=== PATIENT | male | born 1965 | race Two or more races ===

== ENCOUNTER 2024-08-15 14:47 | Inpatient (IN) | payer BC, OTHER ==
[~2024-08-15] VITALS: Ht 182.9 cm; Wt 111.0 kg
[2024-08-15] MEDS: SODIUM CHLORIDE 0.9% 1,000 ML IV ONE ×2 (15:00→17:45)
[2024-08-15] MEDS: fentaNYL CITRATE 100 MCG/2 ML VL IV ONE ×2 (15:00→16:45)
[2024-08-15] MEDS: ONDANSETRON HCL 4 MG/2 ML VIAL IV ONE ×2 (15:00→16:45)
--- NOTE | 2024-08-15 15:05 | ED.PDOC ---
General HPI Comments 59 y/o obese M is BIBA for c/o right flank pain, today. Patient was seen and admitted to the ED 2x weeks ago for kidney stone. Since then, patient has been fine until today at 1230 with unprovoked and sudden onset of right flank pain. He reports on pain being constant with associated nausea and vomiting. Patient endorses on pain also feeling similar to previous kidney stones Patient reports being a "hard stick." Vitals on scene: pulse of 97, blood pressure of 170/97, SpO2 of 98%RA, respiratory rate of 22 Vitals upon arrival to ED: pulse of 95, blood pressure of 179/99, SpO2 of 98%RA, respiratory rate of 24 Past medical history: HTN, kidney stones Past surgical history: denies HPI: Poor Historian. REVIEW OF SYSTEMS: CONSTITUTIONAL: Denies acute: fever, diaphoresis, chills, generalized weakness. HEAD: Denies acute: headache, photophobia Eyes: Denies acute: Double vision, vision loss, eye pain, eye discharge. EARS: Denies acute: tinnitus, hearing loss, ear discharge, ear pain, THROAT: Denies acute: sore throat, swelling, difficulty swallowing , pain with swallowing, change in voice. NECK: Denies acute: neck pain, neck swelling, stiff neck. HEART: Denies acute : chest pain, palpitations, LUNGS: Denies acute: SOB, wheezing, cough, hemoptysis ABDOMEN: Denies acute: diarrhea, melena , hematemesis, hematochezia SKIN: Denies acute: rash, redness, lesions, itchiness. EXTREMITIES: Denies acute: calf pain, numbness, tingling, weakness, denies pain in extremity. Denies acute: Low back pain. Neuro: Denies acute: focal neurological deficit, motor or sensory focal neurological deficit, tremors, seizure like activity, confusion, dizziness, change in mental status, loss of bowel or bladder function, cauda equina like symptoms. : Denies acute: dysuria, hematuria, increase in urinary frequency. PSYCH: Denies acute: hallucination, suicidal ideation, homicidal ideation. PHYSICAL EXAM: General: ---moderate to severe-----acute distress, awake and alert. Head: normocephalic, atraumatic. Neck: supple, trachea is midline, no swelling. Throat: Normal phonation. Eyes:, no erythema, no purulent discharge, no proptosis, no icterus. Heart: regular rate, regular rhythm, no significant murmur appreciated. Lungs: no apparent respiratory distress, No wheezing, no rhonchi, no crackles. No stridors Clear to auscultation bilaterally. Abdomen: Right-sided abdominal tender to palpation, non distended, soft, no gua rding, no rebound, + bowel sounds. Neuro: Awake, Alert, oriented to name, self, situation, follows commands GCS=15. Speech is normal. Skin: no petechia, no purpura, no cyanosis, non-pale, not jaundice. Lower extremities: --no - Pitting edema no deformity, no focal swelling, no calf TTP. Makes eye contact. moves all four extremities. Face: no apparent facial droop. Right CVA tenderness to percussion ED COURSE: Chief Complaint: Flank Pain Time Seen by MD: 14:50 Primary Care Provider: unknown Reviewed notes: Nurses Notes, Time Lock Expert Notes, Medications, Allergies Allergies: Coded Allergies: NO KNOWN ALLERGIES (Unverified , 08/15/24) Home Meds Reported Medications Topiramate (Topamax) 25 Mg Tab, 0.04 MG PO, TAB 08/15/24 Chlorthalidone (Chlorthalidone) 25 Mg Tab, 10 MG PO, TAB 08/15/24 Amlodipine Besylate (Amlodipine Besylate) 10 Mg Tab, 1 TAB PO DAILY, #30 TAB 5 Refills 08/15/24 Lisinopril (Lisinopril) 20 Mg Tab, 1 TAB PO DAILY, #30 TAB 5 Refills 08/15/24 Information Source: Patient, Emergency Med Personnel Mode of Arrival: EMS Was a procedure done? Was a procedure done?: No Differential Diagnosis Kidney stone (Female): N/A Kidney stone (Male): Other (Flank Pain;DDX include Nephrolethiasis, obstructive uropathy, kidney cancer, renal infarct, intraabdominal neoplasm, lower lobe pneumonia, retroperitoneal hemorrhage, pancreatitis, aneurysm, dissection, musculoskeletal, rib contusion/trauma, hematoma, PYLONEPHRITIS, muscle strain, spinal disease. ) X-Ray, Labs, Meds, VS Vital Signs Date Time Temp Pulse Resp B/P (MAP) Pulse Ox O2 Delivery O2 Flow Rate FiO2 08/15/24 18:30 99 18 155/84 08/15/24 17:52 83 18 182/111 (134) 97 08/15/24 16:45 182/111 08/15/24 16:07 84 08/15/24 15:00 187/102 08/15/24 14:54 98.0 95 24 179/99 (125) 98 98.0 Lab Test 08/15/24 17:47 08/15/24 15:45 08/15/24 15:21 Range/Units Lactic Acid Level 2.8 *H 3.8 *H 0.4-2.0 mmol/L Urine Color Colorless Yellow Urine Clarity Clear Clear Urine pH 7.5 5.0-9.0 Urine Specific [place] 1.010 1.001-1.035 Urine Protein Trace H Negative Urine Ketones Negative Negative Urine Blood Trace H Negative /uL Urine Nitrite Negative Negative Urine Bilirubin Negative Negative Urine Urobilinogen Normal Negative mg/dL Urine Leukocyte Esterase Negative Negative /uL Urine RBC 12 0 - 3 /hpf Urine Microscopic WBC < 1 0-3 /HPF Urine Squamous Epithelial Cells None seen <5 /hpf Urine Bacteria None seen None Seen /hpf Urine Glucose Normal Normal mg/dL White Blood Count 8.8 4.4-10.8 10^3/uL Red Blood Count 5.66 4.5-5.90 10^6/uL Hemoglobin 16.1 13.5-17.5 g/dL Hematocrit 48.0 41.0-53.0 % Mean Corpuscular Volume 84.7 80.0-100.0 fL Mean Corpuscular Hemoglobin 28.5 28.0-32.0 pg Mean Corpuscular Hemoglobin Concent 33.6 32.0-36.0 g/dL Red Cell Distribution Width 15.1 H 11.8-14.3 % Platelet Count 240 140-450 10^3/uL Mean Platelet Volume 8.3 6.9-10.8 fL Neutrophils (%) (Auto) 80.9 H 37.0-80.0 % Lymphocytes (%) (Auto) 12.9 10.0-50.0 % Monocytes (%) (Auto) 5.3 0.0-12.0 % Eosinophils (%) (Auto) 0.6 0.0-7.0 % Basophils (%) (Auto) 0.3 0.0-2.0 % Neutrophils # (Auto) 7.1 1.6-8.6 10 ^3/uL Lymphocytes # (Auto) 1.1 0.4-5.4 10 ^3/uL Monocytes # (Auto) 0.5 0-1.3 10 ^3/uL Eosinophils # (Auto) 0.1 0-0.8 10 ^3/uL Basophils # (Auto) 0 0-0.2 10 ^3/uL Nucleated Red Blood Cells 0.1 % Sodium Level 140 136-145 mmol/L Potassium Level 2.9 L 3.5-5.1 mmol/L Chloride Level 102 98-107 mmol/L Carbon Dioxide Level 26 20-31 mmol/L Anion Gap 12 5-15 Blood Urea Nitrogen 15 9-23 mg/dL Creatinine 1.60 H 0.700-1.30 mg/dL Glomerular Filtration Rate Calc 49 >90 mL/min BUN/Creatinine Ratio 9.4 L 10.0-20.0 Serum Glucose 118 H 74-106 mg/dL Calcium Level 10.1 8.7-10.4 mg/dL Total Bilirubin 0.4 0.2-1.0 mg/dL Aspartate Amino Transferase (AST) 28 13-40 U/L Alanine Aminotransferase (ALT) 28 7-40 U/L Alkaline Phosphatase 59 46-116 U/L Troponin I High Sensitivity 4 </=54 ng/L Total Protein 8.2 5.7-8.2 g/dL Albumin 4.9 H 3.2-4.8 g/dL Hepatitis B Surface Antigen Pending Hepatitis C Antibody Pending [place] [address] Ph: [phone] DIAGNOSTIC IMAGING Diagnostic Imaging Report : [id number] Signed PATIENT: STACI DELUNA ACCT: [id number] UNIT: [id number] : 1965 LOC: ER ROOM / BED: / AGE / SEX: 59 / M ADM STATUS: REG ER SERVICE [id number] ORDERING PHYSICIAN: TORITO OLEARY DO PROCEDURE(s): ABPL - CT AB PEL WO CON-NO ORAL OR IV REASON: flank pain/abd pain ORDER NUMBER(s): [id number], ACCESSION NUMBER(s): [id number] Procedure: CT CT AB PEL WO CON-NO ORAL OR IV 08/15/2024 03:25 PM Indication: flank pain/abd pain Comparison Study: None Technique: Axial images were obtained and reformatted in coronal and sagittal planes. All CT scans at this medical facility are performed using dose modulation techniques as appropriate to a performed exam including the following: Automated exposure control was utilized; adjustment of the MA and/or KV according to patient size; and use of iterative reconstruction technique. CT Dose: CTDI volume is 25 mGy. Dose-length product is 1394 mGy*cm FINDINGS: Lower Chest: Unremarkable. Hepatobiliary: Hepatic steatosis. Spleen: Unremarkable. Pancreas: Unremarkable. Adrenal Glands: Unremarkable. tract: The kidneys are normal in size bilaterally . Moderate right hydronephrosis and proximal hydroureter noted. There are 2 obstructing calculi in the right proximal ureter measuring 6 mm and 4 mm. The largest stone is closer to the UVJ. Moderate amount of fluid is seen inferior to the right pelvis inferior pole of the right kidney. Moderate fat stranding surrounding the right proximal ureter. There is mild left hydronephrosis. Numerous subcentimeter nonobstructing bilateral renal calculi are seen measuring up to 3 mm. ModerateThe urinary bladder is unremarkable. GI tract: The stomach is grossly normal in appearance. No evidence of small blu l obstruction. The large bowel is unremarkable. The appendix is normal. Lymphatics: Numerous retroperitoneal lymph nodes are seen measuring up to 1.8 x 1 cm in the aortocaval region. Few mildly prominent mesenteric lymph nodes are seen with the largest in the right lower quadrant measuring 1.6 x 0.8 cm. No Prominent Pelvic lymph node. Vasculature: The abdominal aorta is normal in caliber. Pelvic Organs: Prostate is moderately enlarged measuring 6.2 cm in transverse. Bones/soft tissues: Small fat containing umbilical hernia. Degenerative disc disease and posterior facet arthropathy noted at several levels in the lower lumbar spine most prominent at L4-L5 with severe reduction in disc height, discogenic endplate changes, moderate to severe central canal stenosis and severe left neural foramina stenosis. Mild degenerative grade 1 anterolisthesis L2 on L3 noted. Subcentimeter sclerotic focus is seen in the left side of the L5 vertebral body. Other: None. IMPRESSION: 1. Right renal obstructive uropathy due to 2 subcentimeter calculi in the right proximal ureter with evidence of uterine leak. No definite the urinoma at this time. 2. Numerous subcentimeter nonobstructing bilateral renal calculi measuring 2-3 mm. There is mild left hydronephrosis without obstructing calculi. 3. Retroperitoneal right lower quadrant mesenteric lymphadenopathy likely reactive in nature. Recommend attention on follow-up. 4. Hepatic steatosis. ATED BY: LIYAH TREVINO MD DICTATED DATE/TIME: 08/15/24 1622 SIGNED BY: LIYAH TREVINO MD SIGNED DATE/TIME: 08/15/24 162 CC: Time of 1ST Reevaluation: 14:50 Reevaluation 1ST: Unchanged Patient Education/Counseling: Diagnosis, Treatment Family Education/Counseling: No Family Present Departure 1 Departure Time of Disposition: 17:50 Impression: Primary Impression: Urinary tract obstruction by kidney stone Additional Impression: Hydronephrosis with renal and ureteral calculous obstruction Disposition: 09 ADMITTED INPATIENT Admit to: [facility] Condition: Guarded Discharged With: Self Critical Care Note Critical Care Time?: Yes (35 min-critical care time only) I personally scribed for TORITO OLEARY DO ([email or web address]) on 08/15/24 at 15:05. Electronically submitted by Guillermo Schroeder ([email or web address]). TORITO OLEARY DO Aug 15, 2024 15:05
[2024-08-15 15:44] LABS: Basophils # (auto) 0 10 ^3/uL (0-0.2); Basophils % (auto) 0.3 % (0.0-2.0); Eosinophils # (auto) 0.1 10 ^3/uL (0-0.8); Eosinophils % (auto) 0.6 % (0.0-7.0); Hemoglobin 16.1 g/dL (13.5-17.5); Lymphocytes # (auto) 1.1 10 ^3/uL (0.4-5.4); Lymphocytes % (auto) 12.9 % (10.0-50.0); Mean Corpuscular Hemoglobin 28.5 pg (28.0-32.0); Mean Corpuscular Hgb Conc. 33.6 g/dL (32.0-36.0); Mean Corpuscular Volume 84.7 fL (80.0-100.0); Monocytes # (auto) 0.5 10 ^3/uL (0-1.3); Monocytes % (auto) 5.3 % (0.0-12.0); Neutrophils # (auto) 7.1 10 ^3/uL (1.6-8.6); Neutrophils % (auto) 80.9 % (37.0-80.0); Nucleated Red Blood Cells % 0.1 %; Platelet Count (auto) 240 10^3/uL (140-450); Red Blood Cells 5.66 10^6/uL (4.5-5.90); Red Cell Distribution Width 15.1 % (11.8-14.3); White Blood Cell 8.8 10^3/uL (4.4-10.8)
[2024-08-15 15:55] LABS: Urine Bacteria None Seen /hpf (None Seen)
[2024-08-15 16:02] LABS: Alanine Aminotransferase 28 U/L (7-40); Alkaline Phosphatase 59 U/L (46-116); Anion Gap 12 (5-15); Aspartate Aminotransferase 28 U/L (13-40); BUN/Creatinine Ratio 9.4 (10.0-20.0); Bilirubin, Total 0.4 mg/dL (0.2-1.0); Blood Urea Nitrogen 15 mg/dL (9-23); Calcium 10.1 mg/dL (8.7-10.4); Carbon Dioxide 26 mmol/L (20-31); Chloride 102 mmol/L (98-107); Sodium 140 mmol/L (136-145); Total Protein 8.2 g/dL (5.7-8.2)
[2024-08-15 16:03] LABS: Urine Blood TRACE /uL (Negative); Urine Clarity Clear (Clear); Urine Color Colorless (Yellow); Urine Protein, UAD TRACE (Negative); Urine Squamous Epithelial Cell None Seen /hpf (<5); Urine Urobilinogen Normal (Negative); Urine WBC < 1 /HPF (0-3); Urine pH 7.5 (5.0-9.0)
[2024-08-15 16:03] LABS: Albumin 4.9 g/dL (3.2-4.8); Glucose 118 mg/dL (74-106); Potassium 2.9 mmol/L (3.5-5.1)
[2024-08-15 16:10] LABS: Lactic Acid w/Reflex 3.8 mmol/L (0.4-2.0)
[2024-08-15] MEDS: TAMSULOSIN HYDROCHLORIDE 0.4 MG CAP PO ONE (16:15)
--- NOTE | 2024-08-15 16:24 | DVH ---
Procedure: CT CT AB PEL WO CON-NO ORAL OR IV 08/15/2024 03:25 PM Indication: flank pain/abd pain Comparison Study: None Technique: Axial images were obtained and reformatted in coronal and sagittal planes. All CT scans at this medical facility are performed using dose modulation techniques as appropriate to a performed e xam including the following: Automated exposure control was utilized; adjustment of the MA and/or KV according to patient size; and use of iterative reconstruction technique. CT Dose: CTDI volume is 25 mGy. Dose-length product is 1394 mGy*cm FINDINGS: Lower Chest: Unremarkable. Hepatobiliary: Hepatic steatosis. Spleen: Unremarkable. Pancreas: Unremarkable. Adrenal Glands: Unremarkable. tract: The kidneys are normal in size bilaterally . Moderate right hydronephrosis and proximal hy droureter noted. There are 2 obstructing calculi in the right proximal ureter measuring 6 mm and 4 mm . The largest stone is closer to the UVJ. Moderate amount of fluid is seen inferior to the right pelv is inferior pole of the right kidney. Moderate fat stranding surrounding the right proximal ureter. There is mild left hydronephrosis. Numerous subcentimeter nonobstructing bilateral renal calculi are seen measuring up to 3 mm. ModerateThe urinary bladder is unremarkable. GI tract: The stomach is grossly normal in appearance. No evidence of small bowel obstruction. The la rge bowel is unremarkable. The appendix is normal. Lymphatics: Numerous retroperitoneal lymph nodes are seen measuring up to 1.8 x 1 cm in the aortocava l region. Few mildly prominent mesenteric lymph nodes are seen with the largest in the right lower q uadrant measuring 1.6 x 0.8 cm. No Prominent Pelvic lymph node. Vasculature: The abdominal aorta is normal in caliber. Pelvic Organs: Prostate is moderately enlarged measuring 6.2 cm in transverse. Bones/soft tissues: Small fat containing umbilical hernia. Degenerative disc disease and posterior fa cet arthropathy noted at several levels in the lower lumbar spine most prominent at L4-L5 with severe reduction in disc height, discogenic endplate changes, moderate to severe central canal stenosis and severe left neural foramina stenosis. Mild degenerative grade 1 anterolisthesis L2 on L3 noted. Sub centimeter sclerotic focus is seen in the left side of the L5 vertebral body. Other: None. IMPRESSION: 1. Right renal obstructive uropathy due to 2 subcentimeter calculi in the right proximal ureter with evidence of uterine leak. No definite the urinoma at this time. 2. Numerous subcentimeter nonobstructing bilateral renal calculi measuring 2-3 mm. There is mild left hydronephrosis without obstructing calculi. 3. Retroperitoneal right lower quadrant mesenteric lymphadenopathy likely reactive in nature. Recomme nd attention on follow-up. 4. Hepatic steatosis.
[2024-08-15] MEDS: HYDROMORPHONE HCL 1 MG/ML INJ IV ONE (17:45)
--- NOTE | 2024-08-15 18:17 | ECG ---
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
[2024-08-15] MEDS: HYDROmorphone HCL 2 MG/ML VL/or syr IV ONE (18:30)
[2024-08-15] MEDS: SODIUM CHLORIDE 0.9% 1,000 ML IV SCH (19:15)
[2024-08-15] MEDS ORDERED: TEMAZEPAM 15 MG CAP PO PRN (19:15)
[2024-08-15] MEDS ORDERED: MAALOX PLUS or MAALOX 30 ML PO PRN (19:15)
[2024-08-15] MEDS ORDERED: LORazepam 0.5 MG TAB PO PRN (19:15)
--- NOTE | 2024-08-15 19:18 | DVHHP2 ---
History of Present Illness Reason for Visit: flank pain History of Present Illness 59 yo male with a history of kidney stones patient was in the ed 2 weeksbefore for kidney stones and today came back to the ed with complaints of severe abdominal pain with nausea and vomiting and stated worsening pain since his previous admission patient for admission for continued medical management and evaluation Cardiovascular: HTN Review of Systems Constitutional: Yes: Weakness; No: Fever, Chills, Sweats, Malaise, Other Eyes: No: Pain, Vision change, Conjunctivae inflammation, Eyelid inflammation, Other, Redness ENT: No: Ear pain, Ear discharge, Nose pain, Nose discharge, Nose congestion, Mouth pain, Mouth swelling, Throat pain, Throat swelling, Other Respiratory: No: Cough, Dry, Shortness of breath, SOB with excertion, Wheezing, Hemoptysis, Pleuritic Pain, Sputum, Wheezing, Other Cardiovascular: No: Chest Pain, Palpitations, Orthopnea, Paroxysmal Noc. Dyspnea, Edema, Lt Headedness, Other Gastrointestinal: Nausea, Vomiting, Abdominal Pain; No: Diarrhea, Constipation, Melena, Hematochezia, Other Genitourinary: Dysuria; No Frequency, No Incontinence; Hematuria, Retention; No Other Musculoskeletal: No: other, neck pain, shoulder pain, arm pain, back pain, hand pain, leg pain, foot pain Skin: No: Rash, Lesions, Jaundice, Bruising, Other Neurological: No: Weakness, Numbness, Incoordination, Change in speech, Confusion, Seizures, Other Allergies: Coded Allergies: NO KNOWN ALLERGIES (Unverified , 08/15/24) Medications Current Medications Medications Dose Ordered Sig/Charo Route Start Time Stop Time Status Last Admin Dose Admin Sodium Chloride 1,000 ml @ 60 mls/hr [id number] IV 08/15/24 19:15 Lorazepam 0.5 mg Q6HP PRN PO 08/15/24 19:15 Al Hydrox/Mg Hydrox/Simethicone 30 ml Q6HP PRN PO 08/15/24 19:15 Docusate Sodium 100 mg BIDPRN PRN PO 08/15/24 19:15 Acetaminophen 650 mg Q6HP PRN PO 08/15/24 19:15 Temazepam 15 mg QHSP PRN PO 08/15/24 19:15 Hydromorphone HCl 1 mg Q4HP PRN IV 08/15/24 19:15 Ondansetron HCl 4 mg Q4HP PRN IV 08/15/24 19:15 Ceftriaxone Sodium 50 ml @ 100 mls/hr DAILY IV 08/15/24 19:15 Finasteride 5 mg DAILY PO 08/16/24 10:00 Tamsulosin HCl 0.8 mg QPM PO 08/16/24 18:00 Exam Vital Signs Vital Signs Date Time Temp Pulse Resp B/P (MAP) Pulse Ox O2 Delivery O2 Flow Rate FiO2 08/15/24 18:30 99 18 155/84 08/15/24 17:52 97 08/15/24 14:54 98.0 98.0 Exam General: ---moderate to severe-----acute distress, awake and alert. Head: normocephalic, atraumatic. Neck: supple, trachea is midline, no swelling. Throat: Normal phonation. Eyes:, no erythema, no purulent discharge, no proptosis, no icterus. Heart: regular rate, regular rhythm, no significant murmur appreciated. Lungs: no apparent respiratory distress, No wheezing, no rhonchi, no crackles. No stridors Clear to auscultation bilaterally. Abdomen: Right-sided abdominal tender to palpation, non distended, soft, no guarding, no rebound, + bowel sounds. Neuro: Awake, Alert, oriented to name, self, situation, follows commands GCS=15. Speech is normal. Skin: no petechia, no purpura, no cyanosis, non-pale, not jaundice. Lower extremities: --no - Pitting edema no deformity, no focal swelling, no calf TTP. Face: no apparent facial droop. Right CVA tenderness to percussion Labs/Xrays Labs Test 08/15/24 17:47 08/15/24 15:45 08/15/24 15:21 Range/Units Lactic Acid Level 2.8 *H 0.4-2.0 mmol/L Urine Color Colorless Yellow Urine Clarity Clear Clear Urine pH 7.5 5.0-9.0 Urine Specific [place] 1.010 1.001-1.035 Urine Protein Trace H Negative Urine Ketones Negative Negative Urine Blood Trace H Negative /uL Urine Nitrite Negative Negative Urine Bilirubin Negative Negative Urine Urobilinogen Normal Negative mg/dL Urine Leukocyte Esterase Negative Negative /uL Urine RBC 12 0 - 3 /hpf Urine Microscopic WBC < 1 0-3 /HPF Urine Squamous Epithelial Cells None seen <5 /hpf Urine Bacteria None seen None Seen /hpf Urine Glucose Normal Normal mg/dL White Blood Count 8.8 4.4-10.8 10^3/uL Red Blood Count 5.66 4.5-5.90 10^6/uL Hemoglobin 16.1 13.5-17.5 g/dL Hematocrit 48.0 41.0-53.0 % Mean Corpuscular Volume 84.7 80.0-100.0 fL Mean Corpuscular Hemoglobin 28.5 28.0-32.0 pg Mean Corpuscular Hemoglobin Concent 33.6 32.0-36.0 g/dL Red Cell Distribution Width 15.1 H 11.8-14.3 % Platelet Count 240 140-450 10^3/uL Mean Platelet Volume 8.3 6.9-10.8 fL Neutrophils (%) (Auto) 80.9 H 37.0-80.0 % Lymphocytes (%) (Auto) 12.9 10.0-50.0 % Monocytes (%) (Auto) 5.3 0.0-12.0 % Eosinophils (%) (Auto) 0.6 0.0-7.0 % Basophils (%) (Auto) 0.3 0.0-2.0 % Neutrophils # (Auto) 7.1 1.6-8.6 10 ^3/uL Lymphocytes # (Auto) 1.1 0.4-5.4 10 ^3/uL Monocytes # (Auto) 0.5 0-1.3 10 ^3/uL Eosinophils # (Auto) 0.1 0-0.8 10 ^3/uL Basophils # (Auto) 0 0-0.2 10 ^3/uL Nucleated Red Blood Cells 0.1 % Sodium Level 140 136-145 mmol/L Potassium Level 2.9 L 3.5-5.1 mmol/L Chloride Level 102 98-107 mmol/L Carbon Dioxide Level 26 20-31 mmol/L Anion Gap 12 5-15 Blood Urea Nitrogen 15 9-23 mg/dL Creatinine 1.60 H 0.700-1.30 mg/dL Glomerular Filtration Rate Calc 49 >90 mL/min BUN/Creatinine Ratio 9.4 L 10.0-20.0 Serum Glucose 118 H 74-106 mg/dL Calcium Level 10.1 8.7-10.4 mg/dL Total Bilirubin 0.4 0.2-1.0 mg/dL Aspartate Amino Transferase (AST) 28 13-40 U/L Alanine Aminotransferase (ALT) 28 7-40 U/L Alkaline Phosphatase 59 46-116 U/L Troponin I High Sensitivity 4 </=54 ng/L Total Protein 8.2 5.7-8.2 g/dL Albumin 4.9 H 3.2-4.8 g/dL Assessment/Plan Assessment/Plan Obstructive uropathy right ureter stone with hydronephrosis Bilateral stones present with bilateral hydronephrosis Right stone as obstructive Left stone is nonobstructive CT scan evaluated with stones noted Urology evaluation Prostatic Hypertrophy IV Hydration IV abx acute pain management Plan discussed with: Patient My Orders Orders - TARA OAKLEY MD Procedure Category Date Status Time Admit ADMIT 08/15/24 Transmitted 19:03 Code Status CODE 08/15/24 Transmitted 19:03 Vital Signs CINDI 08/15/24 In Process 19:03 Review Orders With CINDI 08/15/24 In Process Adm. 19:03 Consistent DIET 08/16/24 Transmitted Carb(Ccho)Diabetes Breakfast Sodium Chloride 0.9% PHA 08/15/24 In Process 19:15 Lorazepam Tablet PHA 08/15/24 In Process (Ativan Tablet) 19:15 Alum & Mag PHA 08/15/24 In Process Hydrox-Simethicone 19:15 Docusate Sodium PHA 08/15/24 In Process Capsule (Colace 19:15 Acetaminophen Tablet PHA 08/15/24 In Process (Tylenol Tablet) 19:15 Temazepam (Restoril) PHA 08/15/24 In Process 19:15 Notify Md Of Changes CINDI 08/15/24 In Process From Base 19:03 Advance Directive CINDI 08/15/24 In Process 19:03 Patient Condition ORDERS 08/15/24 Transmitted 19:03 Allergies CINDI 08/15/24 In Process 19:03 Hydromorphone PHA 08/15/24 In Process Injection (Dilaudid 19:15 Ondansetron Hcl PHA 08/15/24 In Process (Zofran) 19:15 Notify Md Of Changes CINDI 08/15/24 In Process From Base 19:03 Oxygen By Nasal RT 08/15/24 Transmitted Cannula 19:03 Ceftriaxone 1gm/50ml PHA 08/15/24 In Process D5w (Rocephin) 19:15 * Urology Consult CONS 08/15/24 Transmitted 19:03 Finasteride Tablet PHA 08/16/24 In Process (Proscar Tablet) 10:00 Tamsulosin PHA 08/16/24 In Process Hydrochloride (Flomax) 18:00 Date of Service: Aug 15, 2024 Billing Provider: TARA OAKLEY MD Common Visit Codes: [id number] INP/OBS CARE (HIGH) TARA OAKLEY MD Aug 15, 2024 19:18
[2024-08-15] MEDS: cefTRIAXone 1GM/50ML D5W 50 ML IV SCH (19:32)
[2024-08-15 21:17] VITALS: PULSE 98; O2SAT 97
[2024-08-15] MEDS: HYDROmorphone HCL 2 MG/ML VL/or syr IV PRN (21:19)
[2024-08-15] MEDS ORDERED: CHLO25TA2 PO (21:50)
[2024-08-15] MEDS ORDERED: LISI20TA56 PO (21:50)
[2024-08-15] MEDS ORDERED: AMLO1TAB23 PO (21:50)
[2024-08-15] MEDS ORDERED: TOPI25TA43 PO (21:50)
[2024-08-15 22:30] VITALS: BP 156/105; PULSE 95; RESP 18; TEMP 98.2; O2SAT 98
[2024-08-15] MEDS: SODIUM CHL 0.9% 100 ML IV SCH (23:00)
[2024-08-15] MEDS: ACETAMINOPHEN 325 MG TAB PO PRN (23:31)
[2024-08-15] MEDS: POTASSIUM CHL 20MEQ/50ML 50 ML IV SCH (23:56)
[2024-08-16] VITALS (8 sets, daily range): BP systolic 117–166; BP diastolic 74–111; PULSE 88–99; RESP 17–20; TEMP 97.4–98.7; O2SAT 96–100
[2024-08-16] MEDS: ONDANSETRON HCL 4 MG/2 ML VIAL IV PRN (05:49)
[2024-08-16] MEDS: FINASTERIDE 5 MG TAB PO SCH (09:50)
[2024-08-16] MEDS ORDERED: SODIUM CHL 0.9% 100 ML IV SCH (10:00)
[2024-08-16] MEDS: POTASSIUM CHL 20MEQ/50ML 50 ML IV SCH (10:55)
[2024-08-16] MEDS: amLODIPine BESYLATE 5 MG TAB PO ONE (11:15)
--- NOTE | 2024-08-16 12:41 | DVHPN2 ---
Subjective The patient is seen and examined at bedside. Complain of severe pain in the right flank area. The pain medication did not help him Reviewed: Care Plan, H&P, Labs, Medications, Previous Orders, Radiology Changes from previous H/P or p: No Changes Eyes: No Pain, No Vision change, No Conjunctivae inflammation, No Eyelid inflammation, No Other, No Redness ENT: No Ear pain, No Ear discharge, No Nose pain, No Nose discharge, No Nose congestion, No Mouth pain, No Mouth swelling, No Throat pain, No Throat swelling, No Other Cardiovascular: No Chest Pain, No Palpitations, No Orthopnea, No Paroxysmal Noc. Dyspnea, No Edema, No Lt Headedness, No Other Respiratory: No Cough, No Dry, No Shortness of breath, No SOB with excertion, No Wheezing, No Hemoptysis, No Pleuritic Pain, No Sputum, No Other Gastrointestinal: Nausea, Vomiting, Abdominal Pain; No Diarrhea, No Constipation, No Melena, No Hematochezia, No Other Genitourinary: Dysuria; No Frequency, No Incontinence; Hematuria, Retention; No Other Musculoskeletal: No other, No neck pain, No shoulder pain, No arm pain, No back pain, No hand pain, No leg pain, No foot pain Skin: No Rash, No Lesions, No Jaundice, No Bruising, No Other Objective Vitals Vital Signs Date Time Temp Pulse Resp B/P (MAP) Pulse Ox O2 Delivery O2 Flow Rate FiO2 08/16/24 11:15 150/95 08/16/24 09:51 94 20 08/16/24 09:00 98.7 100 98.7 08/16/24 08:00 Nasal Cannula* 2 28 Intake/Output Intake and Output 08/16/24 07:00 Intake Total 120 ml Output Total 1845 ml Balance -1725 ml Intake Oral 120 ml Output Urine Total 1845 ml General Appearance: Alert, Oriented X3, moderate distress HEENT: Atraumatic, PERRLA, EOMI, Mucous membr. moist/pink Neck: Supple Lungs: Clear to auscultation, Normal air movement Cardiovascular: Regular rate, Normal S1, Normal S2, No murmurs, Gallops, Rubs Abdomen: Normal bowel sounds, Soft, No tenderness Neuro: Strength at 5/5 X4 ext Psych/Mental Status: Mental status NL Medications Current Medications Medications Dose Ordered Sig/Charo Route Start Time Stop Time Status Last Admin Dose Admin Sodium Chloride 1,000 ml @ 60 mls/hr [id number] IV 08/15/24 19:15 08/15/24 19:15 60 MLS/HR Lorazepam 0.5 mg Q6HP PRN PO 08/15/24 19:15 Al Hydrox/Mg Hydrox/Simethicone 30 ml Q6HP PRN PO 08/15/24 19:15 Docusate Sodium 100 mg BIDPRN PRN PO 08/15/24 19:15 Acetaminophen 650 mg Q6HP PRN PO 08/15/24 19:15 08/16/24 05:41 650 MG Temazepam 15 mg QHSP PRN PO 08/15/24 19:15 Hydromorphone HCl 1 mg Q4HP PRN IV 08/15/24 19:15 08/16/24 09:51 1 MG Ondansetron HCl 4 mg Q4HP PRN IV 08/15/24 19:15 08/16/24 05:49 4 MG Ceftriaxone Sodium 50 ml @ 100 mls/hr DAILY IV 08/15/24 19:15 08/15/24 19:32 100 MLS/HR Finasteride 5 mg DAILY PO 08/16/24 10:00 08/16/24 09:50 5 MG Tamsulosin HCl 0.8 mg QPM PO 08/16/24 18:00 Amlodipine Besylate 10 mg DAILY PO 08/17/24 10:00 Lisinopril 20 mg DAILY PO 08/17/24 10:00 Laboratory Results Laboratory Tests 08/15/24 15:21 Chemistry Test 08/15/24 15:21 Albumin 4.9 g/dL (3.2-4.8) H Calcium Level 10.1 mg/dL (8.7-10.4) Total Protein 8.2 g/dL (5.7-8.2) LFT Test 08/15/24 15:21 Alanine Aminotransferase (ALT) 28 U/L (7-40) Alkaline Phosphatase 59 U/L (46-116) Aspartate Amino Transferase (AST) 28 U/L (13-40) Total Bilirubin 0.4 mg/dL (0.2-1.0) Urinalysis Test 08/15/24 15:45 Urine Color Colorless (Yellow) Urine Clarity Clear (Clear) Urine pH 7.5 (5.0-9.0) Urine Specific [place] 1.010 (1.001-1.035) Urine Protein Trace (Negative) H Urine Ketones Negative (Negative) Urine Blood Trace /uL (Negative) H Urine Nitrite Negative (Negative) Urine Bilirubin Negative (Negative) Urine Urobilinogen Normal mg/dL (Negative) Urine Leukocyte Esterase Negative /uL (Negative) Urine RBC 12 /hpf (0 - 3) Urine Microscopic WBC < 1 /HPF (0-3) Urine Squamous Epithelial Cells None seen /hpf (<5) Urine Bacteria None seen /hpf (None Seen) Urine Glucose Normal mg/dL (Normal) Labs and/or images reviewed: Labs reviewed by me Assessment/Plan Assessment/Plan Obstructive uropathy right ureter stone with hydronephrosis Bilateral stones present with bilateral hydronephrosis Right stone as obstructive Left stone is nonobstructive Control pain syndrome Continuing current management. Continuing with IV antibiotic. Continuing with IV fluid Increase Dilaudid to 2 mg IV q.3 hours as needed for severe pain Urology input appreciated. Waiting for lithotripsy [facility] on Sunday This medical document was created using an electronic medical record system with [employer] direct computerized dictation system. Although this document has been carefully reviewed, there may still be some phonetic and typographical errors. These areas are purely typographical due to imperfections of the software programs, and do not reflect any compromise in the patient's medical care. Plan discussed with: Patient My Orders Orders - IGLESIA HAILE MD Procedure Category Date Status Time Amlodipine Tablet PHA 08/17/24 In Process (Norvasc Tablet) 10:00 Lisinopril Tablet PHA 08/17/24 In Process (Zestril Tablet) 10:00 Date of Service: Aug 16, 2024 Billing Provider: IGLESIA HAILE MD Common Visit Codes: [id number] INP/OBS CARE(HIGH) IGLESIA HAILE MD Aug 16, 2024 12:41
--- NOTE | 2024-08-16 12:47 | DVHINCON2 ---
Date of service: Aug 16, 2024 Referring Physician Hospitalist Reason for Consultation Obstructive uropathy History of Present Illness History Source: Patient, RN Notes, MD Notes Exam Limitations: No limitations HPI 59 yo male with a history of kidney stones patient was in the ed 2 weeksbefore for kidney stones and today came back to the ed with complaints of severe abdominal pain with nausea and vomiting and stated worsening pain since his previous admission patient for admission for continued medical management and evaluation. pt was sleeping during rounds. Home Meds Reported Medications Topiramate (Topamax) 25 Mg Tab, 0.04 MG PO, TAB 08/15/24 Chlorthalidone (Chlorthalidone) 25 Mg Tab, 10 MG PO, TAB 08/15/24 Amlodipine Besylate (Amlodipine Besylate) 10 Mg Tab, 1 TAB PO DAILY, #30 TAB 5 Refills 08/15/24 Lisinopril (Lisinopril) 20 Mg Tab, 1 TAB PO DAILY, #30 TAB 5 Refills 08/15/24 Past Medical History Patient Family History: Hypertension G8 MOTHER G8 FATHER Review of Systems Constitutional: No symptom reported Ears, Nose, & Throat: No symptom reported Eyes: No symptom reported Pulmonary/Respiratory: No symptom reported Cardiovascular: No symptom reported Gastrointestinal: No symptom reported Genitourinary: No symptom reported Musculoskeletal: No symptom reported Skin: No symptom reported Psychiatric: No symptom reported Endocrine: No symptom reported Hemotologic/Lymphatic: No symptom reported H&P Exam Vital Signs Vital Signs Date Time Temp Pulse Resp B/P (MAP) Pulse Ox O2 Delivery O2 Flow Rate FiO2 08/16/24 11:15 150/95 08/16/24 09:51 94 20 08/16/24 09:00 98.7 100 98.7 08/16/24 08:00 Nasal Cannula* 2 28 General Appeara: Well developed, Well nourished, Normal Appearance, Obese Labs/Xrays [address] [address] Ph: [phone] DIAGNOSTIC IMAGING Diagnostic Imaging Report : [id number] Signed PATIENT: STACI DELUNA ACCT: [id number] UNIT: [id number] : 1965 LOC: ER ROOM / BED: / AGE / SEX: 59 / M ADM STATUS: REG ER SERVICE 3630 ORDERING PHYSICIAN: TORITO OLEARY DO PROCEDURE(s): ABPL - CT AB PEL WO CON-NO ORAL OR IV REASON: flank pain/abd pain ORDER NUMBER(s): [id number], ACCESSION NUMBER(s): [id number] Procedure: CT CT AB PEL WO CON-NO ORAL OR IV 08/15/2024 03:25 PM Indication: flank pain/abd pain Comparison Study: None Technique: Axial images were obtained and reformatted in coronal and sagittal planes. All CT scans at this medical facility are performed using dose modulation techniques as appropriate to a performed exam including the following: Automated exposure control was utilized; adjustment of the MA and/or KV according to patient size; and use of iterative reconstruction technique. CT Dose: CTDI volume is 25 mGy. Dose-length product is 1394 mGy*cm FINDINGS: Lower Chest: Unremarkable. Hepatobiliary: Hepatic steatosis. Spleen: Unremarkable. Pancreas: Unremarkable. Adrenal Glands: Unremarkable. tract: The kidneys are normal in size bilaterally . Moderate right hydronephrosis and proximal hydroureter noted. There are 2 obstructing calculi in the right proximal ureter measuring 6 mm and 4 mm. The largest stone is closer to the UVJ. Moderate amount of fluid is seen inferior to the right pelvis inferior pole of the right kidney. Moderate fat stranding surrounding the right proximal ureter. There is mild left hydronephrosis. Numerous subcentimeter nonobstructing bilateral renal calculi are seen measuring up to 3 mm. ModerateThe urinary bladder is unremarkable. GI tract: The stomach is grossly normal in appearance. No evidence of small bowel obstruction. The large bowel is unremarkable. The appendix is normal. Lymphatics: Numerous retroperitoneal lymph nodes are seen measuring up to 1.8 x 1 cm in the aortocaval region. Few mildly prominent mesenteric lymph nodes are seen with the largest in the right lower quadrant measuring 1.6 x 0.8 cm. No Prominent Pelvic lymph node. Vasculature: The abdominal aorta is normal in caliber. Pelvic Organs: Prostate is moderately enlarged measuring 6.2 cm in transverse. Bones/soft tissues: Small fat containing umbilical hernia. Degenerative disc disease and posterior facet arthropathy noted at several levels in the lower lumbar spine most prominent at L4-L5 with severe reduction in disc height, discogenic endplate changes, moderate to severe central canal stenosis and severe left neural foramina stenosis. Mild degenerative grade 1 anterolisthesis L2 on L3 noted. Subcentimeter sclerotic focus is seen in the left side of the L5 vertebral body. Other: None. IMPRESSION: 1. Right renal obstructive uropathy due to 2 subcentimeter calculi in the right proximal ureter with evidence of uterine leak. No definite the urinoma at this time. 2. Numerous subcentimeter nonobstructing bilateral renal calculi measuring 2-3 mm. There is mild left hydronephrosis without obstructing calculi. 3. Retroperitoneal right lower quadrant mesenteric lymphadenopathy likely reactive in nature. Recommend attention on follow-up. 4. Hepatic steatosis. ATED BY: LIYAH TREVINO MD DICTATED DATE/TIME: 08/15/241621 SIGNED BY: LIYAH TREVINO MD SIGNED DATE/TIME: 08/15/241621 CC: Labs Test 08/15/24 17:47 08/15/24 15:45 08/15/24 15:21 Range/Units Lactic Acid Level 2.8 *H 0.4-2.0 mmol/L Urine Color Colorless Yellow Urine Clarity Clear Clear Urine pH 7.5 5.0-9.0 Urine Specific [place] 1.010 1.001-1.035 Urine Protein Trace H Negative Urine Ketones Negative Negative Urine Blood Trace H Negative /uL Urine Nitrite Negative Negative Urine Bilirubin Negative Negative Urine Urobilinogen Normal Negative mg/dL Urine Leukocyte Esterase Negative Negative /uL Urine RBC 12 0 - 3 /hpf Urine Microscopic WBC < 1 0-3 /HPF Urine Squamous Epithelial Cells None seen <5 /hpf Urine Bacteria None seen None Seen /hpf Urine Glucose Normal Normal mg/dL White Blood Count 8.8 4.4-10.8 10^3/uL Red Blood Count 5.66 4.5-5.90 10^6/uL Hemoglobin 16.1 13.5-17.5 g/dL Hematocrit 48.0 41.0-53.0 % Mean Corpuscular Volume 84.7 80.0-100.0 fL Mean Corpuscular Hemoglobin 28.5 28.0-32.0 pg Mean Corpuscular Hemoglobin Concent 33.6 32.0-36.0 g/dL Red Cell Distribution Width 15.1 H 11.8-14.3 % Platelet Count 240 140-450 10^3/uL Mean Platelet Volume 8.3 6.9-10.8 fL Neutrophils (%) (Auto) 80.9 H 37.0-80.0 % Lymphocytes (%) (Auto) 12.9 10.0-50.0 % Monocytes (%) (Auto) 5.3 0.0-12.0 % Eosinophils (%) (Auto) 0.6 0.0-7.0 % Basophils (%) (Auto) 0.3 0.0-2.0 % Neutrophils # (Auto) 7.1 1.6-8.6 10 ^3/uL Lymphocytes # (Auto) 1.1 0.4-5.4 10 ^3/uL Monocytes # (Auto) 0.5 0-1.3 10 ^3/uL Eosinophils # (Auto) 0.1 0-0.8 10 ^3/uL Basophils # (Auto) 0 0-0.2 10 ^3/uL Nucleated Red Blood Cells 0.1 % Sodium Level 140 136-145 mmol/L Potassium Level 2.9 L 3.5-5.1 mmol/L Chloride Level 102 98-107 mmol/L Carbon Dioxide Level 26 20-31 mmol/L Anion Gap 12 5-15 Blood Urea Nitrogen 15 9-23 mg/dL Creatinine 1.60 H 0.700-1.30 mg/dL Glomerular Filtration Rate Calc 49 >90 mL/min BUN/Creatinine Ratio 9.4 L 10.0-20.0 Serum Glucose 118 H 74-106 mg/dL Calcium Level 10.1 8.7-10.4 mg/dL Total Bilirubin 0.4 0.2-1.0 mg/dL Aspartate Amino Transferase (AST) 28 13-40 U/L Alanine Aminotransferase (ALT) 28 7-40 U/L Alkaline Phosphatase 59 46-116 U/L Troponin I High Sensitivity 4 </=54 ng/L Total Protein 8.2 5.7-8.2 g/dL Albumin 4.9 H 3.2-4.8 g/dL Assessment/Plan Problem List: (1) Hydronephrosis with renal and ureteral calculous obstruction (2) Urinary tract obstruction by kidney stone Plan right eswl TBA 08/19/24 Plan discussed with: Patient, Other BASIA ALEXANDER NP Aug 16, 2024 12:47
[2024-08-16] MEDS: HYDROmorphone HCL 2 MG/ML VL/or syr IV PRN ×2 (14:56→18:21)
[2024-08-16] MEDS: ALBUTEROL SULF 2.5 MG/0.5ML(0.5%) NEB SOLN ONE (17:47)
[2024-08-16] MEDS: TAMSULOSIN HYDROCHLORIDE 0.4 MG CAP PO SCH (18:13)
[2024-08-16 19:02] LABS: INR 1.09 (0.9-1.15); Prothrombin Time 11.5 sec (9.3-11.8)
[2024-08-17] VITALS (9 sets, daily range): BP systolic 121–165; BP diastolic 82–103; PULSE 73–106; RESP 17–20; TEMP 97.5–98.8; O2SAT 94–99
[2024-08-17] MEDS: amLODIPine BESYLATE 5 MG TAB PO SCH (09:16)
[2024-08-17] MEDS: LISINOPRIL 20 MG TAB PO SCH (09:17)
[2024-08-17] MEDS: KETOROLAC TROMETH 30 MG/ML 1ML VIAL IV PRN (11:22)
--- NOTE | 2024-08-17 12:38 | DVHPN2 ---
Subjective The patient is seen and examined at bedside. Complain of severe pain in the right flank area. The pain medication did not help him Reviewed: Care Plan, H&P, Labs, Medications, Previous Orders, Radiology Changes from previous H/P or p: No Changes Eyes: No Pain, No Vision change, No Conjunctivae inflammation, No Eyelid inflammation, No Other, No Redness ENT: No Ear pain, No Ear discharge, No Nose pain, No Nose discharge, No Nose congestion, No Mouth pain, No Mouth swelling, No Throat pain, No Throat swelling, No Other Cardiovascular: No Chest Pain, No Palpitations, No Orthopnea, No Paroxysmal Noc. Dyspnea, No Edema, No Lt Headedness, No Other Respiratory: No Cough, No Dry, No Shortness of breath, No SOB with excertion, No Wheezing, No Hemoptysis, No Pleuritic Pain, No Sputum, No Other Gastrointestinal: Nausea, Vomiting, Abdominal Pain; No Diarrhea, No Constipation, No Melena, No Hematochezia, No Other Genitourinary: Dysuria; No Frequency, No Incontinence; Hematuria, Retention; No Other Musculoskeletal: No other, No neck pain, No shoulder pain, No arm pain, No back pain, No hand pain, No leg pain, No foot pain Skin: No Rash, No Lesions, No Jaundice, No Bruising, No Other Objective Vitals Vital Signs Date Time Temp Pulse Resp B/P (MAP) Pulse Ox O2 Delivery O2 Flow Rate FiO2 08/17/24 09:17 131/96 08/17/24 09:16 93 19 08/17/24 08:47 98.4 95 98.4 08/17/24 08:00 Nasal Cannula* 2 28 Intake/Output Intake and Output 08/17/24 07:00 Intake Total 1505 ml Output Total 1850 ml Balance -345 ml Intake Oral 1405 ml IV Total 100 ml Output Urine Total 1850 ml General Appearance: Alert, Oriented X3, moderate distress HEENT: Atraumatic, PERRLA, EOMI, Mucous membr. moist/pink Neck: Supple Lungs: Clear to auscultation, Normal air movement Cardiovascular: Regular rate, Normal S1, Normal S2, No murmurs, Gallops, Rubs Abdomen: Normal bowel sounds, Soft, No tenderness Neuro: Strength at 5/5 X4 ext Psych/Mental Status: Mental status NL Medications Current Medications Medications Dose Ordered Sig/Charo Route Start Time Stop Time Status Last Admin Dose Admin Sodium Chloride 1,000 ml @ 60 mls/hr [id number] IV 08/15/24 19:15 08/15/24 19:15 60 MLS/HR Lorazepam 0.5 mg Q6HP PRN PO 08/15/24 19:15 Al Hydrox/Mg Hydrox/Simethicone 30 ml Q6HP PRN PO 08/15/24 19:15 Docusate Sodium 100 mg BIDPRN PRN PO 08/15/24 19:15 Acetaminophen 650 mg Q6HP PRN PO 08/15/24 19:15 08/16/24 05:41 650 MG Temazepam 15 mg QHSP PRN PO 08/15/24 19:15 Ondansetron HCl 4 mg Q4HP PRN IV 08/15/24 19:15 08/17/24 09:20 4 MG Ceftriaxone Sodium 50 ml @ 100 mls/hr DAILY IV 08/15/24 19:15 08/17/24 09:15 100 MLS/HR Finasteride 5 mg DAILY PO 08/16/24 10:00 08/17/24 09:17 5 MG Tamsulosin HCl 0.8 mg QPM PO 08/16/24 18:00 08/16/24 18:13 0.8 MG Amlodipine Besylate 10 mg DAILY PO 08/17/24 10:00 08/17/24 09:16 10 MG Lisinopril 20 mg DAILY PO 08/17/24 10:00 08/17/24 09:17 20 MG Hydromorphone HCl 2 mg Q3HPRN PRN IV 08/16/24 15:00 08/17/24 09:16 2 MG Ketorolac Tromethamine 30 mg Q8HP PRN IV 08/17/24 10:15 08/22/24 10:14 08/17/24 11:22 30 MG Laboratory Results Laboratory Tests 08/15/24 15:21 Coagulation Test 08/16/24 18:18 Prothrombin Time 11.5 sec (9.3-11.8) Prothrombin Time INR 1.09 (0.9-1.15) Urinalysis Test 08/15/24 15:45 Urine Color Colorless (Yellow) Urine Clarity Clear (Clear) Urine pH 7.5 (5.0-9.0) Urine Specific [place] 1.010 (1.001-1.035) Urine Protein Trace (Negative) H Urine Ketones Negative (Negative) Urine Blood Trace /uL (Negative) H Urine Nitrite Negative (Negative) Urine Bilirubin Negative (Negative) Urine Urobilinogen Normal mg/dL (Negative) Urine Leukocyte Esterase Negative /uL (Negative) Urine RBC 12 /hpf (0 - 3) Urine Microscopic WBC < 1 /HPF (0-3) Urine Squamous Epithelial Cells None seen /hpf (<5) Urine Bacteria None seen /hpf (None Seen) Urine Glucose Normal mg/dL (Normal) Labs and/or images reviewed: Labs reviewed by me Assessment/Plan Assessment/Plan Obstructive uropathy right ureter stone with hydronephrosis Bilateral stones present with bilateral hydronephrosis Right stone as obstructive Left stone is nonobstructive Control pain syndrome Continuing current management. Continuing with IV antibiotic. Continuing with IV fluid Continuing Dilaudid to 2 mg IV q.3 hours as needed for severe pain Urology input appreciated. Waiting for lithotripsy [facility] on Sunday Add Toradol 30 mg IV Q 8 hours PRN for pain to see if this help the patient with the renal colic pain. This medical document was created using an electronic medical record system with [employer] direct computerized dictation system. Although this document has been carefully reviewed, there may still be some phonetic and typographical errors. These areas are purely typographical due to imperfections of the software programs, and do not reflect any compromise in the patient's medical care. Plan discussed with: Patient My Orders Orders - IGLESIA HAILE MD Procedure Category Date Status Time Hydromorphone PHA 08/16/24 In Process Injection (Dilaudid 15:00 Ketorolac Injection PHA 08/17/24 In Process (Toradol Injection) 10:15 Date of Service: Aug 17, 2024 Billing Provider: IGLESIA HAILE MD Common Visit Codes: [id number] INP/OBS CARE(HIGH) IGLESIA HAILE MD Aug 17, 2024 12:38
--- NOTE | 2024-08-17 14:01 | DVH ---
US KIDNEY HISTORY: hydronephrosis COMPARISON: None TECHNIQUE: Transverse and longitudinal grayscale and color doppler images were obtained of the kidney s and bladder. FINDINGS: Right kidney: Size: 14.8 cm Cortical thickness: Normal Echogenicity: Normal Stones: None Masses: None Hydronephrosis: yes Ureters: Not well visualized. Other: None Left kidney: Size: 11.3 cm Cortical thickness: Normal Echogenicity: Normal Stones: None Masses: None Hydronephrosis: None Ureters: Not well visualized. Other: None Bladder: Normal Other: None. IMPRESSION: Mild right hydronephrosis.
--- NOTE | 2024-08-17 14:56 | DVH ---
Date: 08/17/2024 12:24 PM Examination: XY KUB ABDOMEN SINGLE VIEW History: stones Comparison: CT 08/15/2024 TECHNIQUE: Frontal views of the abdomen was obtained. FINDINGS: Previously noted right ureteral stones are not well visualized on this study due to overlying bowel. Bowel gas pattern is unremarkable. The lung bases are unremarkable. No acute osseous abnormality identified. IMPRESSION: 1. Previously noted right ureteral stones are not well visualized on this study due to overlying blu l.
[2024-08-18] VITALS (9 sets, daily range): BP systolic 116–136; BP diastolic 75–89; PULSE 87–104; RESP 18–19; TEMP 97.7–98.6; O2SAT 91–99
[2024-08-18] MEDS: DOCUSATE SOD 100 MG CAP PO PRN (00:40)
[2024-08-18 07:00] LABS: Basophils # (auto) 0 10 ^3/uL (0-0.2); Basophils % (auto) 0.1 % (0.0-2.0); Eosinophils # (auto) 0 10 ^3/uL (0-0.8); Eosinophils % (auto) 0.2 % (0.0-7.0); Hematocrit 40.8 % (41.0-53.0); Hemoglobin 13.8 g/dL (13.5-17.5); Lymphocytes # (auto) 0.7 10 ^3/uL (0.4-5.4); Lymphocytes % (auto) 5.9 % (10.0-50.0); Mean Corpuscular Hemoglobin 28.2 pg (28.0-32.0); Mean Corpuscular Hgb Conc. 33.8 g/dL (32.0-36.0); Mean Corpuscular Volume 83.5 fL (80.0-100.0); Neutrophils # (auto) 9.7 10 ^3/uL (1.6-8.6); Neutrophils % (auto) 84.8 % (37.0-80.0); Platelet Count (auto) 209 10^3/uL (140-450); Red Blood Cells 4.89 10^6/uL (4.5-5.90); Red Cell Distribution Width 14.9 % (11.8-14.3); White Blood Cell 11.4 10^3/uL (4.4-10.8)
[2024-08-18 10:40] LABS: Anion Gap 16 (5-15); Chloride 104 mmol/L (98-107); Potassium 4.4 mmol/L (3.5-5.1); Sodium 138 mmol/L (136-145)
[2024-08-18 10:41] LABS: Calcium 9.1 mg/dL (8.7-10.4)
[2024-08-18 10:42] LABS: Carbon Dioxide 18 mmol/L (20-31)
[2024-08-18 10:43] LABS: Hepatitis B Surface Antigen Negative (Negative); Hepatitis C Antibody Negative (Negative)
[2024-08-18 10:45] LABS: Glucose 99 mg/dL (74-106)
[2024-08-18 10:46] LABS: BUN/Creatinine Ratio 8.4 (10.0-20.0)
[2024-08-18 10:56] LABS: Blood Urea Nitrogen 25 mg/dL (9-23)
--- NOTE | 2024-08-18 11:31 | DVHPN2 ---
Subjective The patient is seen and examined at bedside. Complain of severe pain in the right flank area. Toradol help the patient. Reviewed: Care Plan, H&P, Labs, Medications, Previous Orders, Radiology Changes from previous H/P or p: No Changes Eyes: No Pain, No Vision change, No Conjunctivae inflammation, No Eyelid inflammation, No Other, No Redness ENT: No Ear pain, No Ear discharge, No Nose pain, No Nose discharge, No Nose congestion, No Mouth pain, No Mouth swelling, No Throat pain, No Throat swelling, No Other Cardiovascular: No Chest Pain, No Palpitations, No Orthopnea, No Paroxysmal Noc. Dyspnea, No Edema, No Lt Headedness, No Other Respiratory: No Cough, No Dry, No Shortness of breath, No SOB with excertion, No Wheezing, No Hemoptysis, No Pleuritic Pain, No Sputum, No Other Gastrointestinal: Nausea, Vomiting, Abdominal Pain; No Diarrhea, No Constipation, No Melena, No Hematochezia, No Other Genitourinary: Dysuria; No Frequency, No Incontinence; Hematuria, Retention; No Other Musculoskeletal: No other, No neck pain, No shoulder pain, No arm pain, No back pain, No hand pain, No leg pain, No foot pain Skin: No Rash, No Lesions, No Jaundice, No Bruising, No Other Objective Vitals Vital Signs Date Time Temp Pulse Resp B/P (MAP) Pulse Ox O2 Delivery O2 Flow Rate FiO2 08/18/24 10:15 120/79 08/18/24 09:56 87 16 08/18/24 08:57 97.7 91 97.7 08/18/24 08:00 Nasal Cannula* 2 28 Intake/Output Intake and Output 08/18/24 07:00 Intake Total 1300 ml Output Total 200 ml Balance 1100 ml Intake Oral 1300 ml Output Urine Total 200 ml # Voids 3 General Appearance: Alert, Oriented X3, moderate distress HEENT: Atraumatic, PERRLA, EOMI, Mucous membr. moist/pink Neck: Supple Lungs: Clear to auscultation, Normal air movement Cardiovascular: Regular rate, Normal S1, Normal S2, No murmurs, Gallops, Rubs Abdomen: Normal bowel sounds, Soft, No tenderness Neuro: Strength at 5/5 X4 ext Psych/Mental Status: Mental status NL Medications Current Medications Medications Dose Ordered Sig/Charo Route Start Time Stop Time Status Last Admin Dose Admin Sodium Chloride 1,000 ml @ 60 mls/hr [id number] IV 08/15/24 19:15 08/17/24 21:00 60 MLS/HR Lorazepam 0.5 mg Q6HP PRN PO 08/15/24 19:15 Al Hydrox/Mg Hydrox/Simethicone 30 ml Q6HP PRN PO 08/15/24 19:15 Docusate Sodium 100 mg BIDPRN PRN PO 08/15/24 19:15 08/18/24 10:14 100 MG Acetaminophen 650 mg Q6HP PRN PO 08/15/24 19:15 08/16/24 05:41 650 MG Temazepam 15 mg QHSP PRN PO 08/15/24 19:15 Ondansetron HCl 4 mg Q4HP PRN IV 08/15/24 19:15 08/17/24 09:20 4 MG Ceftriaxone Sodium 50 ml @ 100 mls/hr DAILY IV 08/15/24 19:15 08/18/24 09:26 100 MLS/HR Finasteride 5 mg DAILY PO 08/16/24 10:00 08/18/24 09:26 5 MG Tamsulosin HCl 0.8 mg QPM PO 08/16/24 18:00 08/17/24 17:40 0.8 MG Amlodipine Besylate 10 mg DAILY PO 08/17/24 10:00 08/18/24 10:15 10 MG Lisinopril 20 mg DAILY PO 08/17/24 10:00 08/18/24 10:15 20 MG Hydromorphone HCl 2 mg Q3HPRN PRN IV 08/16/24 15:00 08/18/24 09:26 2 MG Ketorolac Tromethamine 30 mg Q8HP PRN IV 08/17/24 10:15 08/22/24 10:14 08/18/24 05:56 30 MG Laboratory Results Laboratory Tests 08/18/24 05:02 Chemistry Test 08/18/24 05:02 Calcium Level 9.1 mg/dL (8.7-10.4) Urinalysis Test 08/15/24 15:45 Urine Color Colorless (Yellow) Urine Clarity Clear (Clear) Urine pH 7.5 (5.0-9.0) Urine Specific [place] 1.010 (1.001-1.035) Urine Protein Trace (Negative) H Urine Ketones Negative (Negative) Urine Blood Trace /uL (Negative) H Urine Nitrite Negative (Negative) Urine Bilirubin Negative (Negative) Urine Urobilinogen Normal mg/dL (Negative) Urine Leukocyte Esterase Negative /uL (Negative) Urine RBC 12 /hpf (0 - 3) Urine Microscopic WBC < 1 /HPF (0-3) Urine Squamous Epithelial Cells None seen /hpf (<5) Urine Bacteria None seen /hpf (None Seen) Urine Glucose Normal mg/dL (Normal) Labs and/or images reviewed: Labs reviewed by me Assessment/Plan Assessment/Plan Obstructive uropathy right ureter stone with hydronephrosis Bilateral stones present with bilateral hydronephrosis Right stone as obstructive Left stone is nonobstructive Control pain syndrome Continuing current management. Continuing with IV antibiotic. Continuing with IV fluid Continuing Dilaudid to 2 mg IV q.3 hours as needed for severe pain Urology input appreciated. Waiting for lithotripsy [facility] on Sunday Continue Toradol 30 mg IV Q 8 hours PRN for pain to see if this help the patient with the renal colic pain. This medical document was created using an electronic medical record system with [employer] direct computerized dictation system. Although this document has been carefully reviewed, there may still be some phonetic and typographical errors. These areas are purely typographical due to imperfections of the software programs, and do not reflect any compromise in the patient's medical care. Plan discussed with: Patient, Spouse Date of Service: Aug 18, 2024 Billing Provider: IGLESIA HAILE MD Common Visit Codes: [id number] INP/OBS CARE(HIGH) IGLESIA HAILE MD Aug 18, 2024 11:31
[2024-08-19] VITALS (8 sets, daily range): BP systolic 117–145; BP diastolic 57–95; PULSE 83–117; RESP 16–19; TEMP 98–99.2; O2SAT 92–98
[2024-08-19] MEDS: LIDOCAINE 2%HCL (LOCAL ANESTH.) INJ 10ml MDV ONE (14:38)
[2024-08-19] MEDS ORDERED: DexAMETHasone SOD PHOS 10MG/1ML VIAL INJ ONE (14:42)
[2024-08-19] MEDS ORDERED: ONDANSETRON HCL 4 MG/2 ML VIAL ONE (14:42)
[2024-08-19] MEDS ORDERED: GLYCOPYRROLATE 0.2 MG/ML 1ML VIAL ONE (14:43)
[2024-08-19] MEDS ORDERED: PROPOFOL 10 MG/ML 20 ML IV ONE (14:43)
[2024-08-19] MEDS: CIPROFLOXACIN 400MG/200ML 200 ML IV ONE (15:15)
[2024-08-19] MEDS ORDERED: fentaNYL CITRATE 100 MCG/2 ML VL ONE (15:21)
--- NOTE | 2024-08-19 15:49 | DVHNC2 ---
Procedure - OPERATIVE REPORT Pre-op. Diagnosis: Ureteral Stones - RIGHT Hydronephrosis - RIGHT Flank Pain - RIGHT Post-op. Diagnosis: Same as pre-op diagnosis Operation: Extracorporeal Shockwave Lithotripsy - RIGHT Cystoscopy, Ureteral stent placement - RIGHT Anesthesia: General Indications: Informed Consent: Options were discussed. Treatments can include conservative therapy, Extra-corporeal shockwave therapy (ESWL), Ureteroscopy wit h laser lithotripsy vs extraction, PCNL (percutaneous nephrolithotomy); with or without the use of Stents or retrograde pyelography. Corresponding advantages and disadvantages were also discussed. Questions were addressed. Patient wishes to proceed with right ESWL and cystoscopy with right ureteral stent placement. Risks and benefits of the surgery were reviewed with patient which include but are not limited to infection, bleeding, urosepsis, renal hemorrhage/hematoma formation, ureteral perforation, ureteral stricture formation and need for further surgery if stone does not break, ureteral obstruction from stone fragments, cardiac arrthymia and risks of anesthesia. Despite these risks, patient wishes to proceed with the surgery. Details of Procedure: Under satisfactory anesthesia, the patient was positioned on the lithotripsy table. Using fluoroscopy the stone was localized. Patient was then positioned in the dorsal lithotomy and cystoscopy was performed. The right ureteral orifice was cannulated with a sensoer tip guidewire and advanced into the right renal pelvis under fluroscopy. A 7x24 JJ right Ureteral stent was then placed over the wire under Fluoroscopic and cystoscopic guidance. A good curl was seen in the kidney under fluorscopy and a good curl was seen in the bladder under direct visualization. The bladder was emptied and the cystoscope was taken out. We then positioned the patient accordingly, identified the stone and began extra-corporeal shockwave lithotripsy. Starting at low energy levels, shockwave treatment was commenced. The energy level was gradually increased and stone was fragmented. The patient was then taken off the lithotripsy table and sent to recovery room in stable condition. Specimens: None Complications: None Findings: Stone Laterality: Right Stone Location: 6-8 mm proximal ureteral stone Shocks Delivered: 2400 Max Power settin Fragmentation Quality: Well Ureteral stent size & length: 5 F x [address] right ureteral stent Notes: Visit Code: Procedure Codes: 26739 FRAGMENTING OF KIDNEY STONE. PN last refreshed : 03:47:59 -0700 SOHAN ARMSTRONG MD Aug 19, 2024 15:49
--- NOTE | 2024-08-19 22:43 | DVHPN2 ---
Subjective The patient is seen and examined at bedside.Still have pain in the mitzy area. Reviewed: Care Plan, H&P, Labs, Medications, Previous Orders, Radiology Changes from previous H/P or p: No Changes Eyes: No Pain, No Vision change, No Conjunctivae inflammation, No Eyelid inflammation, No Other, No Redness ENT: No Ear pain, No Ear discharge, No Nose pain, No Nose discharge, No Nose congestion, No Mouth pain, No Mouth swelling, No Throat pain, No Throat swelling, No Other Cardiovascular: No Chest Pain, No Palpitations, No Orthopnea, No Paroxysmal Noc. Dyspnea, No Edema, No Lt Headedness, No Other Respiratory: No Cough, No Dry, No Shortness of breath, No SOB with excertion, No Wheezing, No Hemoptysis, No Pleuritic Pain, No Sputum, No Other Gastrointestinal: Nausea, Vomiting, Abdominal Pain; No Diarrhea, No Constipation, No Melena, No Hematochezia, No Other Genitourinary: Dysuria; No Frequency, No Incontinence; Hematuria, Retention; No Other Musculoskeletal: No other, No neck pain, No shoulder pain, No arm pain, No back pain, No hand pain, No leg pain, No foot pain Skin: No Rash, No Lesions, No Jaundice, No Bruising, No Other Objective Vitals Vital Signs Date Time Temp Pulse Resp B/P (MAP) Pulse Ox O2 Delivery O2 Flow Rate FiO2 08/19/24 20:44 98.0 117 18 145/95 (112) 92 98.0 08/19/24 20:00 Nasal Cannula* 2 28 Intake/Output Intake and Output 08/19/24 07:00 Intake Total 2425 ml Output Total 700 ml Balance 1725 ml Intake Oral 455 ml IV Total 1970 ml Output Urine Total 700 ml # Voids 3 General Appearance: Alert, Oriented X3, moderate distress HEENT: Atraumatic, PERRLA, EOMI, Mucous membr. moist/pink Neck: Supple Lungs: Clear to auscultation, Normal air movement Cardiovascular: Regular rate, Normal S1, Normal S2, No murmurs, Gallops, Rubs Abdomen: Normal bowel sounds, Soft, No tenderness Neuro: Strength at 5/5 X4 ext Psych/Mental Status: Mental status NL Medications Current Medications Medications Dose Ordered Sig/Charo Route Start Time Stop Time Status Last Admin Dose Admin Sodium Chloride 1,000 ml @ 60 mls/hr [id number] IV 08/15/24 19:15 08/19/24 16:45 60 MLS/HR Lorazepam 0.5 mg Q6HP PRN PO 08/15/24 19:15 Al Hydrox/Mg Hydrox/Simethicone 30 ml Q6HP PRN PO 08/15/24 19:15 Docusate Sodium 100 mg BIDPRN PRN PO 08/15/24 19:15 08/19/24 20:03 100 MG Acetaminophen 650 mg Q6HP PRN PO 08/15/24 19:15 08/19/24 22:38 650 MG Temazepam 15 mg QHSP PRN PO 08/15/24 19:15 Ondansetron HCl 4 mg Q4HP PRN IV 08/15/24 19:15 08/17/24 09:20 4 MG Ceftriaxone Sodium 50 ml @ 100 mls/hr DAILY IV 08/15/24 19:15 08/19/24 09:49 100 MLS/HR Finasteride 5 mg DAILY PO 08/16/24 10:00 08/19/24 09:46 5 MG Tamsulosin HCl 0.8 mg QPM PO 08/16/24 18:00 08/19/24 17:54 0.8 MG Amlodipine Besylate 10 mg DAILY PO 08/17/24 10:00 08/19/24 09:46 10 MG Lisinopril 20 mg DAILY PO 08/17/24 10:00 08/19/24 09:46 20 MG Hydromorphone HCl 2 mg Q3HPRN PRN IV 08/16/24 15:00 08/19/24 09:48 2 MG Ketorolac Tromethamine 30 mg Q8HP PRN IV 08/17/24 10:15 08/22/24 10:14 08/19/24 12:57 30 MG Laboratory Results Laboratory Tests 08/18/24 05:02 Urinalysis Test 08/15/24 15:45 Urine Color Colorless (Yellow) Urine Clarity Clear (Clear) Urine pH 7.5 (5.0-9.0) Urine Specific [place] 1.010 (1.001-1.035) Urine Protein Trace (Negative) H Urine Ketones Negative (Negative) Urine Blood Trace /uL (Negative) H Urine Nitrite Negative (Negative) Urine Bilirubin Negative (Negative) Urine Urobilinogen Normal mg/dL (Negative) Urine Leukocyte Esterase Negative /uL (Negative) Urine RBC 12 /hpf (0 - 3) Urine Microscopic WBC < 1 /HPF (0-3) Urine Squamous Epithelial Cells None seen /hpf (<5) Urine Bacteria None seen /hpf (None Seen) Urine Glucose Normal mg/dL (Normal) Microbiology Microbiology Date/Time Source Procedure Growth Status 08/18/24 06:00 Nose MRSA Screen - Final Complete Labs and/or images reviewed: Labs reviewed by me Assessment/Plan Assessment/Plan Obstructive uropathy right ureter stone with hydronephrosis Bilateral stones present with bilateral hydronephrosis Right stone as obstructive Left stone is nonobstructive Control pain syndrome Continuing current management. Continuing with IV antibiotic. Continuing with IV fluid Continuing Dilaudid to 2 mg IV q.3 hours as needed for severe pain Urology input appreciated. Waiting for lithotripsy ESWL on Sunday Add Toradol 30 mg IV Q 8 hours PRN for pain to see if this help the patient with the renal colic pain. This medical document was created using an electronic medical record system with [employer] direct computerized dictation system. Although this document has been carefully reviewed, there may still be some phonetic and typographical errors. These areas are purely typographical due to imperfections of the software programs, and do not reflect any compromise in the patient's medical care. Plan discussed with: Patient Date of Service: Aug 19, 2024 Billing Provider: IGLESIA HAILE MD Common Visit Codes: [id number] INP/OBS CARE(HIGH) IGLESIA HAILE MD Aug 19, 2024 22:43
[2024-08-20 01:00] VITALS: BP 134/91; PULSE 113; RESP 18; TEMP 98; O2SAT 96
[2024-08-20 05:00] VITALS: BP 143/90; PULSE 100; RESP 18; TEMP 98.2; O2SAT 94
[2024-08-20 07:30] VITALS: PULSE 98
[2024-08-20 08:31] VITALS: BP 153/106; PULSE 100; RESP 20; TEMP 99; O2SAT 93
[2024-08-20] MEDS ORDERED: LEVO500T91 PO (11:51)
[2024-08-20] MEDS ORDERED: TAMS-35 PO (11:51)
[2024-08-20] MEDS ORDERED: IBUP-1454 PO (11:51)
--- NOTE | 2024-08-20 11:53 | DVHDS2 ---
Discharge Summary Date of Admission Aug 15, 2024 at 19:03 Date of Discharge: Aug 20, 2024 Admitting Diagnosis Obstructive uropathy right ureter stone with hydronephrosis Bilateral stones present with bilateral hydronephrosis Right stone as obstructive Left stone is nonobstructive Uncontrol pain syndrome Labs/Diagnostic Data: Laboratory Results Test 08/18/24 05:02 08/16/24 18:18 08/15/24 17:47 08/15/24 15:45 White Blood Count 11.4 10^3/uL (4.4-10.8) Red Blood Count 4.89 10^6/uL (4.5-5.90) Hemoglobin 13.8 g/dL (13.5-17.5) Hematocrit 40.8 % (41.0-53.0) Mean Corpuscular Volume 83.5 fL (80.0-100.0) Mean Corpuscular Hemoglobin 28.2 pg (28.0-32.0) Mean Corpuscular Hemoglobin Concent 33.8 g/dL (32.0-36.0) Red Cell Distribution Width 14.9 % (11.8-14.3) Platelet Count 209 10^3/uL (140-450) Mean Platelet Volume 8.3 fL (6.9-10.8) Neutrophils (%) (Auto) 84.8 % (37.0-80.0) Lymphocytes (%) (Auto) 5.9 % (10.0-50.0) Monocytes (%) (Auto) 9.0 % (0.0-12.0) Eosinophils (%) (Auto) 0.2 % (0.0-7.0) Basophils (%) (Auto) 0.1 % (0.0-2.0) Neutrophils # (Auto) 9.7 10 ^3/uL (1.6-8.6) Lymphocytes # (Auto) 0.7 10 ^3/uL (0.4-5.4) Monocytes # (Auto) 1.0 10 ^3/uL (0-1.3) Eosinophils # (Auto) 0 10 ^3/uL (0-0.8) Basophils # (Auto) 0 10 ^3/uL (0-0.2) Nucleated Red Blood Cells 0.0 % Sodium Level 138 mmol/L (136-145) Potassium Level 4.4 mmol/L (3.5-5.1) Chloride Level 104 mmol/L (98-107) Carbon Dioxide Level 18 mmol/L (20-31) Anion Gap 16 (5-15) Blood Urea Nitrogen 25 mg/dL (9-23) Creatinine 2.96 mg/dL (0.700-1.30) Glomerular Filtration Rate Calc 23 mL/min (>90) BUN/Creatinine Ratio 8.4 (10.0-20.0) Serum Glucose 99 mg/dL (74-106) Calcium Level 9.1 mg/dL (8.7-10.4) Prothrombin Time 11.5 sec (9.3-11.8) Prothrombin Time INR 1.09 (0.9-1.15) Lactic Acid Level 2.8 mmol/L (0.4-2.0) Urine Color Colorless (Yellow) Urine Clarity Clear (Clear) Urine pH 7.5 (5.0-9.0) Urine Specific [place] 1.010 (1.001-1.035) Urine Protein Trace (Negative) Urine Ketones Negative (Negative) Urine Blood Trace /uL (Negative) Urine Nitrite Negative (Negative) Urine Bilirubin Negative (Negative) Urine Urobilinogen Normal mg/dL (Negative) Urine Leukocyte Esterase Negative /uL (Negative) Urine RBC 12 /hpf (0 - 3) Urine Microscopic WBC < 1 /HPF (0-3) Urine Squamous Epithelial Cells None seen /hpf (<5) Urine Bacteria None seen /hpf (None Seen) Urine Glucose Normal mg/dL (Normal) Test 08/15/24 15:21 Total Bilirubin 0.4 mg/dL (0.2-1.0) Aspartate Amino Transferase (AST) 28 U/L (13-40) Alanine Aminotransferase (ALT) 28 U/L (7-40) Alkaline Phosphatase 59 U/L (46-116) Troponin I High Sensitivity 4 ng/L (</=54) Total Protein 8.2 g/dL (5.7-8.2) Albumin 4.9 g/dL (3.2-4.8) Hepatitis B Surface Antigen Negative (Negative) Hepatitis C Antibody Negative (Negative) Other Laboratory Tests 08/18/24 05:02 Brief Hx & Hospital Course: This is a 59 years old male with past medical history kidney stone come to emergency department two weeks prior to this admission for kidney stone. The patient was given IV fluid pain medication and was sent home. Patient is supposed to follow up with urologist as outpatient. However this time he come back because he had severe stabbing pain on the right flank and nausea or vomiting. CT scan abdomen pelvis showed: Right renal obstructive uropathy due to 2 subcentimeter calculi in the right proximal ureter with evidence of uterine leak. No definite the urinoma at this time. Numerous subcentimeter nonobstructing bilateral renal calculi measuring 2-3 mm. There is mild left hydronephrosis without obstructing calculi. Retroperitoneal right lower quadrant mesenteric lymphadenopathy likely reactive in nature. Hepatic steatosis. The patient was given Flomax, IV fluid, pain medication with Dilaudid and Cougar. Urologist see the patient this time and Dr. Patel recommend ESWL. Yesterday the patient had procedure done and doing well. Today , the patient's pain is improved. Dr. Patel cleared the patient to be discharged home so I am going to discharge him home. Advised the patient to follow up with primary care physician 1-2 weeks. Follow up with , urologist per schedule. Activity as tolerated. Diet low-salt low-protein diet to prevent further kidney stone. Also recommended to drink plenty of water. Physical exam: HEENT: Normocephalic atraumatic pupils equal react to light and accommodation. Extraocular muscles intact, conjunctiva pink, oropharynx moist, no thrush, no exudate. Lymphatic: No lymphadenopathy Cardiovascular exam: S1, S2 was heard. No murmurs, rubs, gallops Lung: Clear on auscultation bilaterally, no wheeze, rale, rhonchi. GI: Abdominal soft, nondistended, nontenderness, positive bowel sounds. Extremity: No crepitus, cyanosis, edema. Pedal pulses present bilateral. Full range of motion. Skin: Normal turgor, no rash. Psych: Alert, oriented x3. Neurology: No focal deficits, cranial nerve II to XII grossly intact. This medical document was created using an electronic medical record system with [employer] direct computerized dictation system. Although this document has been carefully reviewed, there may still be some phonetic and typographical errors. These areas are purely typographical due to imperfections of the software programs, and do not reflect any compromise in the patient's medical care. Condition at Discharge: Stable Final Diagnosis/Problems List Obstructive uropathy right ureter stone with hydronephrosis Bilateral stones present with bilateral hydronephrosis Right stone as obstructive Left stone is nonobstructive Control pain syndrome Discharge Disposition: Home Discharge Instruct/Medications Diet: Regular, Cardiac 2g Na,low cholest Activity: No Restrictions, As Tolerated Follow Up/Referral: pcp 1-2 weeks Urologist, Dr Patel per schedule Medications: Levaquin 500mg PO daily x 7 days Ibuprofen 600mg tid PRN Flomax 0.8 daily at night Resume home meds. Discharge Statement: "Patient was advised to return to the ER or call 911 if any headaches, dizziness, shortness of breath, chest pain, abdominal pain, bleeding, fevers, or worsening of medical condition. Patient was counseled about treatment plan, medications, possible side effects, patientverbalized understanding. All questions were answered to the best of my ability. This discharge took greater then 30 minutes in planning, reviewing documentation, counseling the patient, and discussing with other team members." ASSESSMENT ASSESSMENT Assessment obstructive uropathy Date of Service: Aug 20, 2024 Billing Provider: IGLESIA HAILE MD Common Visit Codes: 95245-CIW/OBS DISCH DAY >30min IGLESIA HAILE MD Aug 20, 2024 11:53
[2024-08-20 12:33] VITALS: BP 166/101; PULSE 97; RESP 20; TEMP 97.9; O2SAT 97
== END 2024-08-20 13:40 | disposition home or self-care (01) | DRG 661 ==
LOC: EDBD 14:47 → ER 14:47 → OVERFLOW 19:03 → TELE-WESTW 22:28
PROVIDERS: ADMIT Internal Medicine; ATTEND Internal Medicine
PROC: 0TF6XZZ Fragmentation in Right Ureter, External Approach (ICD-10-PCS; 2024-08-19)
PROC: 0T768DZ Dilation of Right Ureter with Intraluminal Device, Via Natural or Artificial Opening Endoscopic (ICD-10-PCS; principal; 2024-08-19 14:45)
DX: N13.6 Pyonephrosis (principal); N40.0 Benign prostatic hyperplasia without lower urinary tract symptoms; I10 Essential (primary) hypertension; K76.0 Fatty (change of) liver, not elsewhere classified; Z79.899 Other long term (current) drug therapy; Z82.49 Family history of ischemic heart disease and other diseases of the circulatory system
CPT/HCPCS: 36415; 74018; 74176; 76775; 80048; 80053; 81001; 83605; 84484; 85025; 85610; 86803; 86850; 86900; 86901; 87081; 87340; 93005; 96361; 96374; 96375; 99291; G0378; J1100; J1885; J2003; J2405; J2704